=== PATIENT | female | born 1990 | race Caucasian/White ===

== ENCOUNTER 2020-03-30 16:15 | Emergency (ER) | payer MEDICAID ==
[~2020-03-30] VITALS: Ht 167.6 cm; Wt 57.0 kg
[2020-03-30] MEDS: ONDANSETRON HCL 4MG/2ML INJ IV STA ×2 (17:17→20:59)
[2020-03-30] MEDS: MORPHINE SULFATE 4 MG/ML CPJ (NOT FOR IM USE) IV STA ×2 (17:17→20:59)
[2020-03-30] MEDS: SODIUM CHLORIDE 0.9% 1,000 ML IV ONE ×3 (18:22→22:27)
[2020-03-30 18:27] LABS: BASOPHILS % 0.5 % (0.0-2.0); EOSINOPHILS % 0.2 % (0.0-5.0); HEMATOCRIT. 36.4 % (36.0-48.0); HEMOGLOBIN. 11.9 g/dL (12.0-16.0); LYMPHOCYTES % 13.1 % (20.0-50.0); MEAN CORPUSCULAR HEMOGLOBIN 25.9 pg (28.0-32.0); MEAN CORPUSCULAR VOLUME 79.4 fL (81.0-99.0); MONOCYTES % 4.9 % (2.0-8.0); NEUTROPHILS % 81.3 % (40.0-76.0); RED BLOOD CELL COUNT 4.59 mill/uL (4.2-5.4); RED CELL DISTRIBUTION WIDTH 15.2 % (11.6-14.6)
[2020-03-30 18:34] LABS: CHLORIDE 103 mEq/L (98-107)
[2020-03-30 18:37] LABS: ETHANOL BLOOD < 10 mg/dL
[2020-03-30 18:46] LABS: PROTHROMBIN TIME 10.9 sec (9.6-11.0)
[2020-03-30 18:48] LABS: HCG SCREEN POSITIVE
[2020-03-30 19:05] LABS: MEAN PLATELET VOLUME 8.6 fl (7.4-10.4); PLATELET 220 x1000/uL (130-400)
[2020-03-30 23:00] LABS: CLARITY URINE CLOUDY (CLEAR); COLOR URINE YELLOW (YELLOW); KETONES URINE 4+ (NEGATIVE); LEUKOCYTE ESTERASE URINE 1+ (NEGATIVE); NITRITE URINE NEGATIVE (NEGATIVE); OCCULT BLOOD URINE TRACE (NEGATIVE); PROTEIN URINE 1+ (NEGATIVE); SPECIFIC GRAVITY URINE 1.033 (1.005-1.030)
[2020-03-30 23:11] LABS: *AMPHETAMINES SCREEN URINE NEGATIVE (NEGATIVE); *BARBITURATES SCREEN URINE NEGATIVE (NEGATIVE)
[2020-03-30 23:12] LABS: *BENZODIAZEPINES SCREEN URINE NEGATIVE (NEGATIVE); *COCAINE SCREEN URINE NEGATIVE (NEGATIVE); METHADONE URINE SCREEN NEGATIVE (NEGATIVE); PHENCYCLIDINE URINE SCREEN NEGATIVE (NEGATIVE)
[2020-03-30 23:19] LABS: CANNABINOID URINE SCREEN PRESUMTIVE POSITIVE (NEGATIVE); OPIATES URINE SCREEN PRESUMTIVE POSITIVE (NEGATIVE)
[2020-03-31] MEDS: ONDANSETRON HCL 4MG/2ML INJ IV ONE (01:07)
[2020-03-31] MEDS ORDERED: ONDANSETRON HCL 4MG/2ML INJ IV PRN (08:00)
[2020-03-31] MEDS: ACETAMINOPHEN 325MG TABLET PO SCH (08:30)
[2020-03-31] MEDS: METOCLOPRAMIDE HCL 10MG/2ML VIAL IV SCH (08:31)
[2020-03-31 09:13] VITALS: BP 118/75
[2020-03-31] MEDS ORDERED: ACETAMINOPHEN 325MG TABLET PO PRN (14:32)
== END 2020-03-31 09:15 | disposition left against medical advice (07) ==
LOC: ER 16:15 → ENRESERV 03-31 08:58 → CANRESERV 03-31 08:58 → ER 03-31 09:15 → CANBEDREQ 03-31 10:04
DX: R10.9 Unspecified abdominal pain (principal)
CPT/HCPCS: 36415; 76801; 76817; 80053; 80305; 80320; 81003; 81025; 83605; 83690; 84702; 84703; 85025; 85610; 96361; 96374; 96375; 96376; 99285; J2270; J2405; J2765; J7030; Z7610; G0480

== ENCOUNTER 2021-09-28 09:57 | Emergency (ER) | payer MEDICAID ==
[~2021-09-28] VITALS: Ht 170.2 cm; Wt 61.0 kg
[2021-09-28] MEDS ORDERED: TRAMADOL 50MG TABLET PO ONE (10:45)
[2021-09-28] MEDS ORDERED: IBUPROFEN 600MG TABLET PO ONE (10:45)
[2021-09-28 10:47] VITALS: BP 124/89
[2021-09-28] MEDS ORDERED: IBUP-2029 MT (13:04)
== END 2021-09-28 13:42 | disposition home or self-care (01) ==
LOC: ER 09:57
DX: S20.211A Contusion of right front wall of thorax, initial encounter (principal); V49.49XA Driver injured in collision with other motor vehicles in traffic accident, initial encounter; Y93.89 Activity, other specified; Y92.89 Other specified places as the place of occurrence of the external cause; Y99.8 Other external cause status
CPT/HCPCS: 71101; 99283

== ENCOUNTER 2022-09-02 18:22 | Emergency (ER) | payer MEDICAID ==
[~2022-09-02] VITALS: Ht 165.1 cm; Wt 56.8 kg
[~2022-09-02 18:22] MED LIST: IBUP-2029 MT
[2022-09-02 19:09] VITALS: BP 104/66; O2SAT 100
[2022-09-02] MEDS ORDERED: MUPI15CR11 TP (23:26)
[2022-09-02 23:50] VITALS: PULSE 79; RESP 16; TEMP 98.7
== END 2022-09-03 00:13 | disposition home or self-care (01) ==
LOC: ER 23:29
DX: L73.9 Follicular disorder, unspecified (principal); R21 Rash and other nonspecific skin eruption
CPT/HCPCS: 81025; 99282

== ENCOUNTER 2022-09-13 16:29 | Emergency (ER) | payer MEDICAID ==
[~2022-09-13] VITALS: Ht 165.1 cm; Wt 55.0 kg
[~2022-09-13 16:29] MED LIST changes: +MUPI15CR11 TP
[2022-09-13 16:54] VITALS: BP 113/68; PULSE 75; RESP 16; TEMP 98.9; O2SAT 100
[2022-09-13] MEDS ORDERED: CETI10TA6 MT (17:22)
== END 2022-09-13 18:05 | disposition home or self-care (01) ==
LOC: ER 16:37
DX: R21 Rash and other nonspecific skin eruption (principal)
CPT/HCPCS: 99281; 99282

== ENCOUNTER 2023-01-23 10:27 | Emergency (ER) | payer MEDICAID ==
[~2023-01-23] VITALS: Ht 160 cm; Wt 59.0 kg
[~2023-01-23 10:27] MED LIST changes: +CETI10TA6 MT
[2023-01-23 10:34] VITALS: O2SAT 100
[2023-01-23] MEDS ORDERED: ONDANSETRON HCL 4MG/2ML INJ IV STA (11:12)
[2023-01-23] MEDS ORDERED: SODIUM CHLORIDE 0.9% 1,000 ML IV ONE ×2 (11:15→13:15)
[2023-01-23 11:23] LABS: HEMATOCRIT. 38.7 % (36.0-48.0); HEMOGLOBIN. 12.2 g/dL (12.0-16.0); MEAN CORPUSCULAR HEMOGLOBIN 24.5 pg (28.0-32.0); MEAN CORPUSCULAR HGB CONC 31.6 g/dL (31.0-37.0); MEAN CORPUSCULAR VOLUME 77.7 fL (81.0-99.0); PLATELET 198 x1000/uL (130-400); RED BLOOD CELL COUNT 4.98 mill/uL (4.2-5.4); RED CELL DISTRIBUTION WIDTH 17.9 % (11.6-14.6); WHITE BLOOD COUNT 2.5 x1000/uL (4.5-11.0)
[2023-01-23 11:35] LABS: DIFFERENTIAL COMMENT 1
[2023-01-23 12:00] LABS: CLARITY URINE CLEAR (CLEAR); COLOR URINE YELLOW (YELLOW)
[2023-01-23 12:01] LABS: GLUCOSE URINE NEGATIVE (NEGATIVE); KETONES URINE 3+ (NEGATIVE); LEUKOCYTE ESTERASE URINE NEGATIVE (NEGATIVE); NITRITE URINE NEGATIVE (NEGATIVE); OCCULT BLOOD URINE 2+ (NEGATIVE); PH URINE 6.5 (4.5-8.0); PROTEIN URINE 1+ (NEGATIVE)
[2023-01-23 12:02] LABS: SPECIFIC GRAVITY URINE >=1.030 (1.005-1.030)
[2023-01-23 12:07] LABS: PLATELET ESTIMATE NORMAL
[2023-01-23 12:08] LABS: MICROCYTOSIS 1+
[2023-01-23 12:09] LABS: ALANINE AMINOTRANSFERASE 50 IU/L (10-49); ALBUMIN 4.6 g/dL (3.2-4.8); ASPARTATE AMINOTRANSFERASE 84 IU/L (<34); BILIRUBIN TOTAL 0.4 mg/dL (0.1-1.0); CALCIUM 9.2 mg/dL (8.7-10.4); CARBON DIOXIDE 26 mEq/L (21-32); CHLORIDE 101 mEq/L (98-107); CREATININE 0.7 mg/dL (0.6-1.0); GLUCOSE 91 mg/dL (70-105); POTASSIUM 3.5 mEq/L (3.5-5.1); PROTEIN TOTAL 8.2 g/dL (6.0-8.3); SODIUM 139 mEq/L (136-145); UREA NITROGEN BLOOD 10 mg/dL (9-23)
[2023-01-23 12:15] LABS: BACTERIA URINE 3+; MUCUS URINE 2+ /lpf (< = 2+); SQUAMOUS EPITHELIAL CELL URINE 2+ /lpf (RARE/1+); YEAST URINE NONE SEEN
[2023-01-23] MEDS ORDERED: METOCLOPRAMIDE HCL 10MG/2ML VIAL IV ONE (13:15)
[2023-01-23 14:05] LABS: HCG SCREEN NEGATIVE
[2023-01-23] MEDS ORDERED: ONDA4TAB50 MT (14:36)
[2023-01-23 15:38] VITALS: BP 108/72; PULSE 71; RESP 19; TEMP 99.5
== END 2023-01-23 15:41 | disposition home or self-care (01) ==
LOC: ER 10:59
DX: R11.2 Nausea with vomiting, unspecified (principal)
CPT/HCPCS: 80053; 81003; 81025; 84703; 83690; 85025; 36415; 96361; 96374; 96375; 99284; J2765; J2405; J7030; Z7610 ×2

== ENCOUNTER 2023-01-24 23:18 | Emergency (ER) | payer MEDICAID ==
[~2023-01-24] VITALS: Ht 165.1 cm; Wt 54.0 kg
[~2023-01-24 23:18] MED LIST changes: +ONDA4TAB50 MT
[2023-01-24 23:33] VITALS: BP 125/58; PULSE 66; RESP 18; TEMP 98.4; O2SAT 100
== END 2023-01-25 04:58 | disposition left against medical advice (07) ==
LOC: ER 23:18
DX: Z53.21 Procedure and treatment not carried out due to patient leaving prior to being seen by health care provider (principal)
CPT/HCPCS: 99281